=== PATIENT | female | born 1960 | race Caucasian/White ===

== ENCOUNTER → 2020-01-23 | Emergency (ER) | payer OTHER ==
[~2020-01-23] VITALS: Ht 160 cm; Wt 88.5 kg
[2020-01-23 11:25] LABS: Basophils # (auto) 0.1 10 ^3/uL (0-0.2); Basophils % (auto) 1.2 % (0.0-2.0); Eosinophils # (auto) 0.2 10 ^3/uL (0-0.8); Eosinophils % (auto) 1.7 % (0.0-7.0); Hematocrit 45.9 % (36.0-46.0); Hemoglobin 15.4 g/dL (12.2-16.2); Lymphocytes # (auto) 2.2 10 ^3/uL (0.4-5.4); Lymphocytes % (auto) 23.9 % (10.0-50.0); Mean Corpuscular Hemoglobin 29.3 pg (28.0-32.0); Mean Corpuscular Hgb Conc. 33.6 g/dL (32.0-36.0); Mean Corpuscular Volume 87.3 fL (80.0-100.0); Monocytes # (auto) 0.6 10 ^3/uL (0-1.3); Monocytes % (auto) 6.2 % (0.0-12.0); Neutrophils # (auto) 6.3 10 ^3/uL (1.6-8.6); Nucleated Red Blood Cells % 0.1 %; Platelet Count (auto) 258 10^3/uL (140-450); Red Blood Cells 5.26 10^6/uL (4.0-5.20); Red Cell Distribution Width 14.6 % (11.8-14.3); White Blood Cell 9.4 10^3/uL (4.4-10.8)
[2020-01-23 11:43] LABS: Partial Thromboplastin Time 30.5 sec (23.0-31.2)
[2020-01-23 11:46] LABS: Albumin 4.2 g/dL (3.4-5.0); Calcium 9.1 mg/dL (8.5-10.1); Potassium 3.8 mmol/L (3.5-5.1)
[2020-01-23 11:50] LABS: BUN/Creatinine Ratio 12.5; Bilirubin, Total 0.7 mg/dL (0.2-1.0); Total Protein 8.1 g/dL (6.4-8.2)
[2020-01-23 13:59] VITALS: BP 107/76
== END | disposition home or self-care (01) ==
LOC: ER 10:23
DX: I62.9 Nontraumatic intracranial hemorrhage, unspecified (principal); I16.9 Hypertensive crisis, unspecified; E78.5 Hyperlipidemia, unspecified
CPT/HCPCS: 36415; 70450; 80053; 85025; 85610; 85730; 93005; 96365; 99291

== ENCOUNTER 2020-10-26 22:19 | Emergency (ER) | payer OTHER ==
[~2020-10-26] VITALS: Ht 165.1 cm; Wt 72.6 kg
[2020-10-26 22:56] LABS: Basophils # (auto) 0.1 10 ^3/uL (0-0.2); Basophils % (auto) 0.8 % (0.0-2.0); Eosinophils # (auto) 0.2 10 ^3/uL (0-0.8); Eosinophils % (auto) 2.5 % (0.0-7.0); Hematocrit 42.8 % (36.0-46.0); Hemoglobin 14.7 g/dL (12.2-16.2); Lymphocytes # (auto) 2.9 10 ^3/uL (0.4-5.4); Lymphocytes % (auto) 29.5 % (10.0-50.0); Mean Corpuscular Hemoglobin 29.5 pg (28.0-32.0); Mean Corpuscular Hgb Conc. 34.4 g/dL (32.0-36.0); Mean Corpuscular Volume 85.7 fL (80.0-100.0); Monocytes # (auto) 0.7 10 ^3/uL (0-1.3); Neutrophils # (auto) 5.8 10 ^3/uL (1.6-8.6); Neutrophils % (auto) 60.2 % (37.0-80.0); Nucleated Red Blood Cells % 0.1 %; Platelet Count (auto) 262 10^3/uL (140-450); Red Cell Distribution Width 15.8 % (11.8-14.3); White Blood Cell 9.7 10^3/uL (4.4-10.8)
[2020-10-26] MEDS ORDERED: levETIRAcetam 500 MG/5ML INJ IV ONE (22:58)
[2020-10-26 23:13] LABS: INR 0.98 (0.9-1.15); Partial Thromboplastin Time 26.4 sec (23.0-31.2)
[2020-10-26 23:14] LABS: Albumin 3.7 g/dL (3.4-5.0); Anion Gap 9 (5-15); Blood Alcohol < 3.0 mg/dL (0-5); Calcium 8.9 mg/dL (8.5-10.1); Carbon Dioxide 23 mmol/L (21-32); Chloride 109 mmol/L (98-107); Glucose 116 mg/dL (74-106); Potassium 3.4 mmol/L (3.5-5.1); Sodium 141 mmol/L (136-145)
[2020-10-26 23:17] LABS: Alanine Aminotransferase 22 U/L (13-56); Alkaline Phosphatase 69 U/L (45-117); Aspartate Aminotransferase 13 U/L (15-37); BUN/Creatinine Ratio 15.4; Bilirubin, Total 0.4 mg/dL (0.2-1.0); Blood Urea Nitrogen 12 mg/dL (7-18); GFR African American 97 mL/min; GFR Non-African American 80 mL/min; Total Protein 7.3 g/dL (6.4-8.2)
[2020-10-27 00:57] VITALS: BP 126/85
== END 2020-10-27 01:47 | disposition home or self-care (01) ==
LOC: ER 22:19 → EDBD 22:19 → ER 10-27 01:47
DX: G40.89 Other seizures (principal)
CPT/HCPCS: 36415; 70450; 71045; 80053; 80320; 83735; 85025; 85610; 85730; 93005; 96365; 99285; J1953; J7060

== ENCOUNTER 2022-03-20 03:58 | Emergency (ER) | payer OTHER ==
[~2022-03-20] VITALS: Ht 175.3 cm; Wt 81.0 kg
[2022-03-20 07:38] LABS: Basophils # (auto) 0.1 10 ^3/uL (0-0.2); Basophils % (auto) 0.4 % (0.0-2.0); Eosinophils # (auto) 0 10 ^3/uL (0-0.8); Hematocrit 44.9 % (36.0-46.0); Hemoglobin 15.4 g/dL (12.2-16.2); Lymphocytes # (auto) 1.4 10 ^3/uL (0.4-5.4); Lymphocytes % (auto) 9.3 % (10.0-50.0); Mean Corpuscular Hemoglobin 30.8 pg (28.0-32.0); Mean Corpuscular Hgb Conc. 34.3 g/dL (32.0-36.0); Mean Corpuscular Volume 89.9 fL (80.0-100.0); Monocytes # (auto) 0.6 10 ^3/uL (0-1.3); Monocytes % (auto) 3.6 % (0.0-12.0); Neutrophils # (auto) 13.4 10 ^3/uL (1.6-8.6); Neutrophils % (auto) 86.7 % (37.0-80.0); Nucleated Red Blood Cells % 0.1 %; Red Blood Cells 4.99 10^6/uL (4.0-5.20); Red Cell Distribution Width 12.9 % (11.8-14.3); White Blood Cell 15.4 10^3/uL (4.4-10.8)
[2022-03-20 07:51] LABS: INR 1.04 (0.9-1.15); Partial Thromboplastin Time 28.5 sec (24.6-33.4)
[2022-03-20 08:09] LABS: BUN/Creatinine Ratio 16.1; Calcium 7.9 mg/dL (8.5-10.1); Potassium 4.2 mmol/L (3.5-5.1)
[2022-03-20 08:12] LABS: Bilirubin, Total 0.7 mg/dL (0.2-1.0); Total Protein 6.6 g/dL (6.4-8.2)
[2022-03-20] MEDS ORDERED: IOHEXOL 350 MG/ML 100ML IJ ONE (08:58)
[2022-03-20 12:50] VITALS: BP 118/85
== END 2022-03-20 13:07 | disposition short-term general hospital (02) ==
LOC: EDBD 03:58 → ER 03:58
DX: R53.1 Weakness (principal); R11.2 Nausea with vomiting, unspecified; M79.675 Pain in left toe(s); M79.674 Pain in right toe(s); E78.5 Hyperlipidemia, unspecified; R51.9 Headache, unspecified; Z90.49 Acquired absence of other specified parts of digestive tract; Z20.822 Contact with and (suspected) exposure to COVID-19; Z86.73 Personal history of transient ischemic attack (TIA), and cerebral infarction without residual deficits; W19.XXXA Unspecified fall, initial encounter; Y93.89 Activity, other specified; Y92.89 Other specified places as the place of occurrence of the external cause; Y99.8 Other external cause status
CPT/HCPCS: 36415; 70450; 71045; 71275; 73620; 80053; 83880; 84484; 85025; 85379; 85610; 85730; 87426; 93005; 99285; Q9967